=== PATIENT | female | born 1960 | race Caucasian/White ===

== ENCOUNTER 2016-10-21 10:57 | Emergency (ER) | payer OTHER, MEDICARE ==
[2016-10-21] MEDS ORDERED: Ketorolac INJ* 60 MG/2 ML VIAL IM ONE (11:56)
[2016-10-21] MEDS ORDERED: Cyclobenzaprine TAB* 10 MG PO ONE (11:56)
[2016-10-21 13:04] VITALS: BP 138/76
--- NOTE | 2016-10-21 13:13 | ED ---
Back Pain - HPI Summary HPI Summary: Patient presents with low back pain that began after cleaning four days ago. Initially she didn't have pain, but two days ago her back began to hurt. She has a history of back pain, so she tried using her regular muscle relaxer and pain medication without relief. She can find a comfortable position while seated , but laying flat and walking cause pain. If she leans forward while walking she can get relief. No n/t, incontinence of urine or stool, abdominal pain, fever or inability to ambulate. - History of Current Complaint Chief Complaint: EDBackInjuryPain Stated Complaint: LOWER BACK PAIN Time Seen by Provider: 10/21/16 11:19 Hx Obtained From: Patient, Family/Administrative Support Assoc Onset/Duration: Gradual Onset Onset/Duration: Started Days Ago - 2 Timing: Constant Back Pain Location: Is Discrete @ - low back Severity Initially: Mild Severity Currently: Severe Pain Intensity: 10 Character: Dull, Aching, Stiffness Aggravating Symptom(s): Walking Alleviating Symptom(s): Position Associated Signs And Symptoms: Positive: Pain with Weight Bearing Related History: Previous Back Injury - Allergies/Home Medications Allergies/Adverse Reactions: Allergies Allergy/AdvReac Type Severity Reaction Status Date / Time Amoxicillin Allergy Rash And Verified 02/08/16 13:07 Itching Milk Protein Extract Allergy Unknown Verified 02/08/16 13:07 [From Asmanex] Reaction Details Mometasone [From Asmanex] Allergy Unknown Verified 02/08/16 13:07 Reaction Details Paroxetine [From Paxil] Allergy Unknown Verified 02/08/16 13:07 Reaction Details Home Medications: Home Medications Multi Vitamin 1 tab PO DAILY 10/21/16 [History Confirmed 10/21/16] PMH/Surg Hx/FS Hx/Imm Hx Endocrine/Hematology History: Denies: Hx Diabetes Cardiovascular History: Denies: Hx Hypertension, Hx Pacemaker/ICD Musculoskeletal History: Reports: Hx Back Problems Sensory History: Denies: Hx Hearing Aid Neurological History: Reports: Other Neuro Impairments/Disorders - SYRINX Psychiatric History: Denies: Hx Panic Disorder - Cancer History Hx Chemotherapy: No Hx Radiation Therapy: No - Surgical History Surgery Procedure, Year, and Place: cervical fusion c5-6,c6-7 2008, syrinx chiari decompression , spinal shunt cervical and revised in 10/09-MRI COMPATIBLE 1.5 ONLY. TUBAL LIGATION-1993 Infectious Disease History: No Infectious Disease History: Denies: Traveled Outside the [place] in Last 30 Days - Social History Occupation: Unemployed Lives: With Family Alcohol Use: None Substance Use Type: Reports: None Smoking Status (MU): Never Smoked Tobacco Review of Systems Negative: Fever Negative: Chest Pain Negative: Shortness Of Breath Negative: Abdominal Pain Positive: Myalgia - low back. Negative: Edema Negative: Bruising Negative: Headache, Weakness, Paresthesia, Numbness All Other Systems Reviewed And Are Negative: Yes Physical Exam Triage Information Reviewed: Yes Vital Signs On Initial Exam: Initial Vitals Temp Pulse Resp BP Pulse Ox 98.5 F 73 20 151/78 99 10/21/16 11:02 10/21/16 11:02 10/21/16 11:02 10/21/16 11:02 10/21/16 11:02 Vital Signs Reviewed: Yes Appearance: Positive: Well-Appearing, Pain Distress, Obese Skin: Positive: Warm, Skin Color Reflects Adequate Perfusion, Dry, Soft Head/Face: Positive: Normal Head/Face Inspection Eyes: Positive: EOMI, SARA, Conjunctiva Clear ENT: Positive: Hearing grossly normal Neck: Positive: Supple, Nontender Respiratory/Lung Sounds: Positive: Clear to Auscultation, Breath Sounds Present Cardiovascular: Positive: RRR Abdomen Description: Negative: Nontender, Soft Musculoskeletal: Positive: Pain @ - TTP bilateral muscles of the lumbar back; non-tender over lumbar spine. Negative: Edema Left, Edema Right Neurological: Positive: Sensory/Motor Intact, Alert, Oriented to Person Place, Time, NV Bundle Intact Distally, Abnormal Gait Psychiatric: Positive: Affect/Mood Appropriate AVPU Assessment: Alert - [place] Coma Scale Coma Scale Total: 15 Diagnostics - Vital Signs Vital Signs Temp Pulse Resp BP Pulse Ox 10/21/16 13:04 59 18 138/76 100 10/21/16 11:02 98.5 F 73 20 151/78 99 - Laboratory Lab Statement: Any lab studies that have been ordered have been reviewed, and results considered in the medical decision making process. Re-Evaluation - Re-Evaluation First Eval Re-Evaluation Time: 13:05 Change: Improved Comment: Patient is more comfortable and awaiting discharge. Back Pain Course/Dx - Diagnoses Differential Diagnosis/HQI/PQRI: Positive: Aneurysm, Arthritis, Cauda Equina Syndrome, Herniated Disc, Osteoporosis, Strain, Sprain Provider Diagnoses: Low back strain Discharge - Discharge Plan Condition: Stable Disposition: HOME Prescriptions: Cyclobenzaprine TAB* [Flexeril 10 MG TAB*] 10 mg PO TID PRN #15 tab PRN Reason: Pain Patient Education Materials: Low Back Strain (ED) Referrals: Carlos Calhoun MD [Primary Care Provider] - Additional Instructions: Please use the medication provided and stop using your Norflex until your current episode is better. Follow-up with your primary care provider if your symptoms do not begin to improve in the next 5-7 days. Return to the emergency department if your symptoms worsen.
== END 2016-10-21 13:33 | disposition home or self-care (01) ==
LOC: ED 10:57
DX: S39.012A Strain of muscle, fascia and tendon of lower back, initial encounter (principal); M54.5 Low back pain; X58.XXXA Exposure to other specified factors, initial encounter; Y93.9 Activity, unspecified; Y92.9 Unspecified place or not applicable
CPT/HCPCS: 96372; 99282; A9270-GY; J1885

== ENCOUNTER 2018-07-28 11:25 | Emergency (ER) | payer OTHER, MEDICARE ==
--- NOTE | 2018-07-28 12:20 | ED ---
Dizziness - HPI Summary HPI Summary: The pt is a 57 y/o female presenting to [facility] c/o dizziness since 02:30 hrs today. 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 The aching pain rated 6/10 in severity is aggravated by light and movement of the head. She had a head MRI performed 4 weeks ago. - History Of Current Complaint Chief Complaint: EDDizziness Stated Complaint: DIZZY Time Seen by Provider: 07/28/18 12:04 Hx Obtained From: Patient Onset/Duration: Still Present Timing: Constant Severity Initially: Moderate Severity Currently: Moderate Character: Dizzy Aggravating Factor(s): Change In Head Position, Other - Light Alleviating Factor(s): Rest, Closing Eyes - Allergies/Home Medications Allergies/Adverse Reactions: Allergies Allergy/AdvReac Type Severity Reaction Status Date / Time amoxicillin Allergy Intermediate Rash And Verified 07/28/18 11:44 Itching mometasone furoate Allergy Unknown Verified 07/28/18 11:44 [From Asmanex Twisthaler] Reaction Details paroxetine [From Paxil] AdvReac See Comment Verified 07/28/18 11:44 PMH/Surg Hx/FS Hx/Imm Hx Previously Healthy: No Endocrine/Hematology History: Denies: Hx Diabetes Cardiovascular History: Reports: Other Cardiovascular Problems/Disorders - PVCs Denies: Hx Hypertension, Hx Pacemaker/ICD Respiratory History: Reports: Hx Asthma Musculoskeletal History: Reports: Hx Back Problems Sensory History: Denies: Hx Hearing Aid Neurological History: Reports: Other Neuro Impairments/Disorders - SYRINX,4 shunts in the neck, Chiari malformation Psychiatric History: Denies: Hx Panic Disorder - Cancer History Cancer Type, Location and Year: None reported Hx Chemotherapy: No Hx Radiation Therapy: No - Surgical History Surgery Procedure, Year, and Place: cervical fusion c5-6,c6-7 2008, syrinx chiari decompression , spinal shunt cervical and revised in 10/09-MRI COMPATIBLE 1.5 ONLY. TUBAL LIGATION-1993 Infectious Disease History: No Infectious Disease History: Denies: Traveled Outside the [place] in Last 30 Days - Family History Known Family History: Negative: Cardiac Disease, Hypertension, Diabetes - Social History Occupation: Disabled Lives: With Family Alcohol Use: Rare Substance Use Type: Reports: None Smoking Status (MU): Never Smoked Tobacco Review of Systems Constitutional: Negative - Head trauma Negative: Fever Positive: Photophobia ENT: Other - Chronic neck pain Negative: Sore Throat, Ear Ache Positive: Nausea Musculoskeletal: Other - L knee pain, 2 falls Neurological: Other - Dizziness Negative: Weakness, Numbness All Other Systems Reviewed And Are Negative: Yes Physical Exam - Summary Physical Exam Summary: Appearance: Well appearing, no pain distress Skin: warm, dry, reflects adequate perfusion Head/face: normal Eyes: EOMI, SARA ENT: normal Neck: supple, non-tender Respiratory: CTA, breath sounds present Cardiovascular: RRR, pulses symmetrical Abdomen: non-tender, soft Musculoskeletal: tenderness of the L knee, strength/ROM intact Neuro: normal, sensory motor intact, A&Ox3 Triage Information Reviewed: Yes Vital Signs On Initial Exam: Initial Vitals Resp BP 18 161/83 07/28/18 11:31 07/28/18 11:31 Vital Signs Reviewed: Yes Diagnostics - Vital Signs Vital Signs Temp Pulse Resp BP Pulse Ox 07/28/18 11:49 54 15 100 07/28/18 11:34 97.6 F 56 22 161/83 99 07/28/18 11:31 18 161/83 - Laboratory Result Diagrams: 07/28/18 12:27 07/28/18 12:27 Lab Statement: Any lab studies that have been ordered have been reviewed, and results considered in the medical decision making process. - Radiology CXR Radiology Interpretation Completed By: Radiologist Summary of Radiographic Findings: IMPRESSION: NO EVIDENCE FOR ACUTE DISEASE. The ED physician reviewed this radiology report. L knee X-ray Radiology Interpretation Completed By: Radiologist Summary of Radiographic Findings: IMPRESSION: NO ACUTE OSSEOUS INJURY. IF SYMPTOMS PERSIST, RECOMMEND REPEAT IMAGING. The ED physician reviewed this radiology report. - CT Brain CT CT Interpretation Completed By: Radiologist Summary of CT Findings: IMPRESSION: NO ACUTE INTRACRANIAL PATHOLOGY. The ED physician reviewed this radiology report. Cervical spine CT Summary of CT Findings: IMPRESSION:1. STRAIGHTENING AND REVERSAL OF THE NORMAL CERVICAL LORDOSIS, NO FRACTURE IS SEEN. 2. POSTSURGICAL CHANGES DESCRIBED. The ED physician reviewed this radiology report. - EKG 12:37 Cardiac Rate: Bradycardia - 51 bpm EKG Rhythm: Sinus Rhythm Re-Evaluation - Re-Evaluation First Eval Re-Evaluation Time: 15:38 Change: Improved - I discussed the results and dispo plan with the pt. Dizzy Course/Dx - Course Course Of Treatment: A 57 year-old F presents to the ED with a CC of dizziness since 02:30 hrs today. 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 A physical exam revealed tenderness of the L knee. A CXR is unremarkable. A brain CT is unremarkable. A L knee X-ray is unremarkable. A cervical spine CT is unremarkable. An EKG reveals bradycardia. In the ED course , pt was given Meclizine 25 mg PO which improved the symptoms. Patient will be discharged with a final Dx of Vertigo and UITI. Pt is agreeable with this plan. Allergies noted. - Diagnoses Differential Diagnosis/HQI/PQRI: Benign Paroxysmal Positional Vertigo, Labyrinthitis Provider Diagnoses: Vertigo, UTI (urinary tract infection) Discharge - Sign-Out/Discharge Documenting (check all that apply): Patient Departure - DC - Discharge Plan Condition: Stable Disposition: HOME Prescriptions: Meclizine TAB* [Antivert 12.5 TAB*] 25 mg PO TID #15 tab Sulfamethox/Trimethoprim DS* [Bactrim DS 800/160 TAB*] 1 tab PO BID #10 tab Patient Education Materials: Urinary Tract Infection in Women (ED), Vertigo (ED ) Referrals: Carlos Calhoun MD [Primary Care Provider] - Additional Instructions: Follow up with PCP in 2-3 days. Return to the ED for any new or worsening symptoms. - Billing Disposition and Condition Condition: STABLE Disposition: Home - Attestation Statements Document Initiated by Scribe: Yes Documenting Scribe: Radha Melchor Provider For Whom Scribe is Documenting (Include Credential): Dr. Tk Irizarry MD Scribe Attestation: Radha Grimaldo , scribed for Dr. Tk Irizarry MD on 07/28/18 at 1615. Scribe Documentation Reviewed: Yes Provider Attestation: The documentation as recorded by the elifibe, Radha Melchor accurately reflects the service I personally performed and the decisions made by me, Dr. Tk Irizarry MD Status of [place] Document: Viewed
[2018-07-28 12:44] LABS: ABS Basophils 0 10^3/ul (0-0.2); ABS Eosinophils 0.1 10^3/ul (0-0.6); ABS Lymphocytes 1.1 10^3/ul (1.0-4.8); ABS Monocytes 0.2 10^3/ul (0-0.8); ABS Neutrophils 5.1 10^3/ul (1.5-7.7); ABS Nucleated RBC 0 10^3/ul; Hematocrit 42 % (35-47); Hemoglobin 14.4 g/dl (12.0-16.0); Lymphocyte % 17.1 %; Mean Corpuscular HGB Conc 34 g/dl (31-36); Mean Corpuscular Hemoglobin 30 pg (27-31); Mean Corpuscular Volume 88 fL (80-97); Mean Platelet Volume 8.9 fL (7.4-10.4); Nucleated Red Blood Cells % 0; Platelet Count 227 10^3/ul (150-450); Red Blood Count 4.79 10^6/ul (4.00-5.40); Red Cell Distribution Width 13 % (10.5-15); White Blood Count 6.6 10^3/ul (3.5-10.8)
[2018-07-28 12:52] LABS: Activated Partial Thrombo Time 29.8 seconds (26.0-36.3); INR 0.9 (0.77-1.02)
[2018-07-28] MEDS ORDERED: Meclizine TAB* 12.5 MG PO ONE (13:00)
[2018-07-28 13:07] LABS: Albumin/Globulin Ratio 1.3 (1-3); BUN/Creatinine Ratio 20.7 (8-20); Calcium 9.4 mg/dL (8.6-10.3); EGFR Non-African American 72.1 (>60); Globulin 3.2 g/dL (2-4); Potassium 4.2 mmol/L (3.5-5.0); Total Bilirubin 0.3 mg/dL (0.2-1.0); Total Protein 7.2 g/dL (6.4-8.9)
[2018-07-28 14:33] LABS: Urine Appearance Clear; Urine Bacteria 1+ (Absent); Urine Bilirubin Negative (Negative); Urine Blood Negative (Negative); Urine Color Yellow; Urine Glucose Negative (Negative); Urine Ketones Trace (Negative); Urine Nitrite Negative (Negative); Urine Protein Negative (Negative); Urine Red Blood Cell Trace(0-2/hpf) (Absent); Urine Specific Gravity 1.019 (1.010-1.030); Urine Urobilinogen Negative (Negative); Urine White Blood Cell 2+(11-20/hpf) (Absent)
[2018-07-28 15:47] VITALS: BP 163/88
== END 2018-07-28 15:47 | disposition home or self-care (01) ==
LOC: ED 11:25
DX: R42 Dizziness and giddiness (principal); N39.0 Urinary tract infection, site not specified; R00.1 Bradycardia, unspecified; M25.562 Pain in left knee; M54.2 Cervicalgia; Z88.0 Allergy status to penicillin; Z88.8 Allergy status to other drugs, medicaments and biological substances
CPT/HCPCS: 36415; 70450; 71045; 72050; 80053; 81003; 81015; 83605; 84484; 85025; 85610; 85730; 87086; 93005; 99283; A9270-GY